=== PATIENT | female | born 1970 | race Caucasian/White ===

== ENCOUNTER 2016-10-24 17:29 | Emergency (ER) | payer MEDICARE, MEDICAID ==
[2016-10-24] MEDS ORDERED: PREDNISONE 20 MG TAB PO ONE (17:50)
--- NOTE | 2016-10-24 17:55 | Emergency Department Record ---
History of Present Illness - General Chief Complaint: Cough Stated Complaint: BRONCHITIS Time Seen by Provider: 10/24/16 17:49 Source: Patient, Family Mode of Arrival: Ambulatory Limitations: No limitations - History of Present Illness Initial Comments: 45 yo female presents with cough and congestion for one week. She is a smoker. She has a history of bronchitis but no asthma or COPD. She cough is somewhat productive. No nausea, vomiting, or diarrhea. No rash. Her PCP is Dr Glasgow. Complaint: Cough, Fever, Nasal congestion -: Week(s) (1) Severity: Moderate Consistency: Constant Improves With: Nothing Worsens With: Nothing Associated Symptoms: Cough Treatments Prior to Arrival: None - Related Data Home Medications Medication Instructions Recorded Confirmed Last Taken Alprazolam [Xanax] 1 mg PO Q6HR PRN 12/27/13 10/24/16 10/24/16 Furosemide [Lasix] 40 mg PO DAILY 12/27/13 10/24/16 10/24/16 Methadone HCl 10 mg PO ASDIR 12/27/13 10/24/16 10/24/16 Paroxetine HCl 20 mg PO DAILY 12/27/13 10/24/16 10/24/16 Ondansetron [Zofran Odt] 4 mg PO Q8H PRN 10/24/16 10/24/16 10/24/16 Previous Rx's Medication Instructions Recorded Meclizine HCl [Antivert] 25 mg PO Q6HR #30 tablet 12/27/13 Amoxicillin/Potassium Clav 1 tab PO BID #14 tab 10/24/16 [Augmentin 875-125 Tablet] Prednisone [Prednisone 20Mg] 20 mg PO BID #10 tab 10/24/16 Allergies Allergy/AdvReac Type Severity Reaction Status Date / Time morphine Allergy VOMITING Verified 10/24/16 17:45 Review of Systems Constitutional: Reports: Fever. Denies: Chills, Malaise, Weakness Eyes: Denies: Eye discharge ENT: Reports: Congestion. Denies: Throat pain Respiratory: Reports: Cough, Wheezes (at times she feels wheezy). Denies: Dyspnea, Hemoptysis, Stridor Cardiovascular: Denies: Chest pain, Palpitations, Syncope Endocrine: Denies: Fatigue Gastrointestinal: Denies: Abdominal pain, Diarrhea, Nausea, Vomiting Musculoskeletal: Denies: Arthralgia, Back pain, Joint swelling, Myalgia, Neck pain Skin: Denies: Bruising, Change in color, Rash Neurological: Denies: Confusion, Headache Psychiatric: Reports: Suicidal thoughts. Denies: Anxiety Hematological/Lymphatic: Denies: Blood Clots, Easy bleeding, Easy bruising, Swollen glands Past Medical History - SOCIAL HISTORY Smoking Status: Former smoker - RESPIRATORY Hx Respiratory Disorders: No - CARDIOVASCULAR Hx Cardio Disorders: No - NEURO Hx Neuro Disorders: No - GI Hx GI Disorders: No - Hx Genitourinary Disorders: No - ENDOCRINE Hx Endocrine Disorders: No - MUSCULOSKELETAL Hx Musculoskeletal Disorders: Yes Hx Arthritis: Yes (scoliosis, Vera Ramirez in back, rhizotomy, facet blocks, epidural, chron) Comment:: "overgrown" of bone over right eye, scoliosis, fibrodisplaysa - PSYCH Hx Psych Problems: No - HEMATOLOGY/ONCOLOGY Hx Hematology/Oncology Disorders: No Physical Exam - General General Appearance: Alert, Oriented x3, Cooperative, No acute distress - Head Head exam: Normal inspection - Eye Eye exam: Normal appearance, PERRL. negative: Conjunctival injection, Periorbital swelling - ENT ENT exam: Normal exam, Mucous membranes moist Ear exam: Normal external inspection. negative: External canal tenderness Nasal Exam: Discharge (clear) Mouth exam: Normal external inspection, Tongue normal Teeth exam: Normal inspection. negative: Dental caries Throat exam: Normal inspection. negative: Tonsillar erythema, Tonsillar exudate - Neck Neck exam: Normal inspection, Full ROM. negative: Tenderness - Respiratory Respiratory exam: Normal lung sounds bilaterally, Other (Non labored,calm respirations). negative: Accessory muscle use, Decreased breath sounds, Respiratory distress, Rhonchi, Stridor, Wheezes - Cardiovascular Cardiovascular Exam: Regular rate, Normal rhythm, Normal heart sounds - GI/Abdominal GI/Abdominal exam: Soft. negative: Tenderness - Rectal Rectal exam: Deferred - exam: Deferred - Extremities Extremities exam: Normal inspection, Full ROM, Normal capillary refill. negative: Tenderness - Back Back exam: Reports: Normal inspection, Full ROM. Denies: Muscle spasm, Rash noted, Tenderness - Neurological Neurological exam: Alert, Normal gait, Oriented X3, Reflexes normal - Psychiatric Psychiatric exam: Normal affect, Normal mood - Skin Skin exam: Dry, Intact, Normal color, Warm Course - Reevaluation(s) Reevaluation #1: The vitals were reviewed No acute changes. No tachycardia or hypoxia No wheeze on examination at this time Given the productive cough she will be placed on antibiotics and prednisone 10/24/16 17:53 Disposition Disposition: Discharge Clinical Impression: Bronchitis Disposition: Home, Self-Care Condition: (1) Good Instructions: Acute Bronchitis (ED) Additional Instructions: Call your doctor for close follow up Return if worse, fever, short of breath Prescriptions: Amoxicillin/Potassium Clav [Augmentin 875-125 Tablet] 1 tab PO BID #14 tab Prednisone [Prednisone 20Mg] 20 mg PO BID #10 tab Forms: Patient Portal Access Time of Disposition: 17:54
== END 2016-10-24 18:20 | disposition home or self-care (01) ==
LOC: ER 17:29
DX: J20.9 Acute bronchitis, unspecified (principal); F17.210 Nicotine dependence, cigarettes, uncomplicated
CPT/HCPCS: 99282; J7512

== ENCOUNTER 2019-02-27 14:57 | Emergency (ER) | payer MEDICARE, MEDICAID ==
--- NOTE | 2019-02-27 16:22 | Emergency Department Record ---
History of Present Illness - General Chief complaint: Extremity Problem Stated complaint: RT LEG ASND FOOT INFLAMATION Time Seen by Provider: 02/27/19 15:46 Source: Patient, Family (Step mother) Mode of Arrival: Ambulatory Limitations: No limitations - History of Present Illness Initial comments: Pt to ED with complaint of pain and swelling to the left ankle over the past "3 days and 2 nights". No known injury to trauma. No hx of similar. No DM. No cut or scrape to foot. No fever. No immunocompromise. No calf pain, CP, CAREY. No hx DVT. Hurts to touch. Location: Right, Ankle, Foot Severity scale (1-10): 10 Quality: Burning Consistency: Constant Improves with: Nothing Worsens with: Palpation, Weight bearing Associated Symptoms: Denies other symptoms - Related Data Home Medications Medication Instructions Recorded Confirmed Last Taken Hydrocodone/APAP 5/325Mg [[place] 1 tab PO Q6HR PRN 02/27/19 02/27/19 02/26/19 5Mg/325Mg] Meloxicam [Mobic] 7.5 mg PO DAILY 02/27/19 02/27/19 02/27/19 Previous Rx's Medication Instructions Recorded Sulfamethoxazole/Trimethoprim 1 each PO BID 10 Days #20 tablet 02/27/19 [Bactrim Ds Tablet] Allergies Allergy/AdvReac Type Severity Reaction Status Date / Time morphine AdvReac VOMITING Verified 02/27/19 15:31 Travel Screening - Travel/Exposure Within Last 30 Days Have you traveled within the last 30 days?: No - Travel/Exposure Within Last Year Have you traveled outside the [place] in the last year?: No - Additonal Travel Details Have you been exposed to anyone with a communicable illness?: No - Travel Symptoms Symptom Screening: None Review of Systems Constitutional: Denies: Chills, Fever, Weakness Eyes: Denies: Eye pain, Photophobia ENT: Denies: Congestion, Ear pain Respiratory: Denies: Cough, Dyspnea Cardiovascular: Denies: Arrhythmia, Chest pain Endocrine: Denies: Fatigue, Polydipsia, Polyuria Gastrointestinal: Denies: Abdominal pain, Nausea, Vomiting Musculoskeletal: Denies: Arthralgia Skin: Reports: As per HPI, Change in color, Rash. Denies: Bruising Neurological: Denies: Abnormal gait, Headache, Tingling Psychiatric: Denies: Anxiety Hematological/Lymphatic: Denies: Anemia Past Medical History - SOCIAL HISTORY Smoking Status: Former smoker Alcohol Use: None Drug Use: None - RESPIRATORY Hx Respiratory Disorders: No - CARDIOVASCULAR Hx Cardio Disorders: No - NEURO Hx Neuro Disorders: No - GI Hx GI Disorders: No - Hx Genitourinary Disorders: No - ENDOCRINE Hx Endocrine Disorders: No - MUSCULOSKELETAL Hx Musculoskeletal Disorders: Yes Hx Arthritis: Yes (scoliosis, Vera Ramirez in back, rhizotomy, facet blocks, epidural, chron) Comment:: "overgrown" of bone over right eye, scoliosis, fibrodisplaysa - PSYCH Hx Psych Problems: No - HEMATOLOGY/ONCOLOGY Hx Hematology/Oncology Disorders: No Family Medical History Any Significant Family History?: No Physical Exam - General General Appearance: Alert, Oriented x3, Cooperative, No acute distress (non toxic) - Head Head exam: Atraumatic - Eye Eye exam: Normal appearance, PERRL - ENT ENT exam: Normal exam, Mucous membranes moist, Normal external ear exam, Normal orophraynx, TM's normal bilaterally - Neck Neck exam: Normal inspection, Full ROM. negative: Tenderness - Respiratory Respiratory exam: Normal lung sounds bilaterally. negative: Respiratory distress - Cardiovascular Cardiovascular Exam: Regular rate, Normal rhythm, Normal heart sounds, Tachycardia Peripheral Pulses: 2+: Radial (R), Radial (L), Dorsalis Pedis (R), Dorsalis Pedis (L) - GI/Abdominal GI/Abdominal exam: Soft, Normal bowel sounds. negative: Tenderness - Extremities Extremities exam: Full ROM (right distal 1/3 tibia with edema and erythema, mild warmthm extends to dorsal right foot. no skin break to foot or between toes. ) - Back Back exam: Reports: Normal inspection - Neurological Neurological exam: Alert, Oriented X3, Reflexes normal - Psychiatric Psychiatric exam: Normal affect - Skin Skin exam: Erythema, Intact, Normal color, Rash, Warm. negative: Vesicles Type of lesion: negative: abrasion, Abscess, Bite/sting, Foreign body, Laceration Distribution of rash: LLE Course Vital Signs 02/27/19 15:37 Temperature 98.6 F Pulse Rate [ 96 H Left] Respiratory 19 Rate Blood Pressure 149/81 [Right Arm] Pulse Ox 96 - Reevaluation(s) Reevaluation #1: 02/27/19 17:24 XR done without evidence of Soft tissue air or bone erosions. There is erythema to the lower leg and foot. It is improved with elevation. Bedside US done by me secondary to Thursday and no inhouse US tech. No obvious DVT seen in the right upper leg groin to knee. Good compression seen. No pain with exam. Pt aware that I am not expert and that this is a screening test. WBC 9K and normal. Pt given Bactrim DS 2 tabs po in ED. Reevaluation #2: 02/27/19 17:51 Plan home with Bactrim DS and close follow up. return here sooner if worse. Medical Decision Making - Lab Data Result diagrams: 02/27/19 16:37 02/27/19 16:37 Disposition Disposition: Discharge Clinical Impression: Cellulitis of right foot Disposition: Home, Self-Care Condition: (2) Stable Instructions: Cellulitis (ED) Additional Instructions: Elevate the foot at all times! Warm compress Recheck family doctor in 24-48 hours. If worse return here to the ED at any time. Take the antibiotic as instructed. Prescriptions: Sulfamethoxazole/Trimethoprim [Bactrim Ds Tablet] 1 each PO BID 10 Days #20 tablet Forms: Patient Portal Access Time of Disposition: 17:55 Quality - Quality Measures Quality Measures: N/A - Blood Pressure Screening Does Patient Have Any of the Following: No Blood Pressure Classification: Pre-Hypertensive BP Reading Systolic Measurement: 149 Diastolic Measurement: 81 Screening for High Blood Pressure: < Pre-Hypertensive BP, F/U Documented > [G8950] Pre-Hypertensive Follow-up Interventions: Follow-up with rescreen every year.
[2019-02-27 17:17] LABS: BASO % 0.4 % (0-6); EOS % 3.4 % (0-6); GRAN % 61.6 % (47-80); HEMATOCRIT 42.2 % (35.0-47.0); HEMOGLOBIN 13.7 gm/dl (11.6-16.0); LYMPH % 27.6 % (16-45); MEAN CELL VOLUME 84.9 fl (81-97); MEAN CORPUSCULAR HEMOGLOBIN 27.6 pg (27-33); MEAN CORPUSCULAR HGB CONC 32.5 g/dl (32-36); MEAN PLATELET VOLUME 9.5 fl (7.4-10.4); PLATELET COUNT 440 K/uL (130-400); RED BLOOD COUNT 4.97 M/uL (3.80-5.40); RED CELL DISTRIBUTION WIDTH 14.5 % (11.5-14.5); WHITE BLOOD COUNT W/O DIFF 9.1 K/uL (4.2-12.2)
[2019-02-27] MEDS ORDERED: TMP/SMZ 160MG/800MG TAB PO ONE ×2 (17:23→17:50)
[2019-02-27 17:30] LABS: BLOOD UREA NITROGEN 13 mg/dL (6-20); CREATININE 0.5 mg/dL (0.5-0.9); EST GLOMERULAR FILTRATION RATE > 60 mL/min
[2019-02-27 17:33] LABS: GLUCOSE,RANDOM 110 mg/dL (74-109)
--- NOTE | 2019-03-01 12:37 | RADIOLOGY REPORT ---
EXAM: RIGHT FOOT HISTORY: RIGHT FOOT SWELLING AND REDNESS. TECHNIQUE: Three views of the right foot were obtained. Comparison: None. FINDINGS: There is mild diffuse soft tissue swelling. There is no visible soft tissue air or radiopaque foreign body. The bones appear intact. There is no acute osseous abnormality. Small plantar and posterior calcaneal spurs are present. IMPRESSION: 1. NONSPECIFIC SOFT TISSUE SWELLING. 2. NO ACUTE OSSEOUS ABNORMALITY OR FOREIGN BODY. JOB NUMBER: [id number] MTDD
--- NOTE | 2019-03-01 12:49 | RADIOLOGY REPORT ---
EXAM: RIGHT TIBIA AND FIBULA HISTORY: RIGHT LOWER EXTREMITY CELLULITIS. SWELLING AND REDNESS. TECHNIQUE: AP and lateral views of the right tibia and fibula were obtained. Comparison: Right foot series from the same date. FINDINGS: There is diffuse soft tissue swelling within the lower leg, ankle, and foot. There is no associated soft tissue air or foreign body. There are no acute osseous abnormalities. IMPRESSION: 1. SOFT TISSUE SWELLING WITH NO SOFT TISSUE AIR OR FOREIGN BODY. 2. NO ACUTE OSSEOUS ABNORMALITIES. JOB NUMBER: [id number] [facility]
== END 2019-02-27 18:07 | disposition home or self-care (01) ==
LOC: ER 14:57
DX: L03.115 Cellulitis of right lower limb (principal); M25.572 Pain in left ankle and joints of left foot; M79.662 Pain in left lower leg; Z87.891 Personal history of nicotine dependence
CPT/HCPCS: 80048; 85025; 99283; 99284